=== PATIENT | male | born 1990 | race Caucasian/White ===

== ENCOUNTER 2018-10-11 19:33 | Emergency (ER) | payer BC ==
[2018-10-11] MEDS ORDERED: Lisinopril 10 MG Tab PO ONE (20:16)
--- NOTE | 2018-10-11 20:16 | EDM.PDOC ---
ED HPI GENERAL MEDICAL PROBLEM - General Chief Complaint: Respiratory Problem Stated Complaint: CONGESTION, TROUBLE BREATHING Time Seen by Provider: 10/11/18 20:11 Source of Information: Reports: Patient History Limitations: Reports: No Limitations - History of Present Illness INITIAL COMMENTS - FREE TEXT/NARRATIVE: HISTORY AND PHYSICAL: History of present illness: Patient is a 28-year-old male who presents to the emergency room with complaints of sore throat, cough and shortness of breath 3 weeks. He states he does cough so hard that his throat is painful and feels hoarse. He denies any fever, chills, chest pain, abdominal pain, nausea, vomiting, diarrhea or constipation. He has been eating and drinking appropriately. Denies any tobacco use. Review of systems: As per history of present illness and below otherwise all systems reviewed and negative. Past medical history: As per history of present illness and as reviewed below otherwise noncontributory. Surgical history: As per history of present illness and as reviewed below otherwise noncontributory. Social history: See social history for further information Family history: As per history of present illness and as reviewed below otherwise noncontributory. Physical exam: General: Well-developed and well-nourished 28 her old male. Alert and oriented. Nontoxic appearing and in no acute distress. HEENT: Atraumatic, normocephalic, pupils equal and reactive bilaterally, negative for conjunctival pallor or scleral icterus, mucous membranes moist, TMs normal bilaterally, throat erythema without exudate, neck supple, nontender , trachea midline. No drooling or trismus noted. No meningeal signs. No hot potato voice noted. Lungs: Diminished to auscultation, breath sounds equal bilaterally, chest nontender. Heart: S1S2, regular rate and rhythm without overt murmur Abdomen: Soft, nondistended, nontender. Negative for masses or hepatosplenomegaly. Negative for costovertebral tenderness. Pelvis: Stable nontender. Genitourinary: Deferred. Rectal: Deferred. Skin: Intact, warm, dry. No lesions or rashes noted. Extremities: Atraumatic, moves all extremities per self with difficulty or deficits, negative for cords or calf pain. Neurovascular unremarkable. Neuro: Awake, alert, oriented. Cranial nerves II through XII unremarkable. Cerebellum unremarkable. Motor and sensory unremarkable throughout. Exam nonfocal. Notes: Patient reports that he has a history of hypertension and had previously been on lisinopril 10 mg once daily. He reports that he stopped taking this medication several months ago as he thought his blood pressure was normal. He is aware that states reading is elevated and would like to be replaced on lisinopril. We discussed restarting this medication but the need to follow up with the primary care provider for reevaluation and further management of his prescriptions. We'll treat with Z-Nick and pro-air due to her longevity of symptoms. Strep is negative. Chest x-ray shows no acute findings. Supportive care measures were reviewed and discussed. Voices understanding and is agreeable to plan of care. Denies any further questions or concerns at this time. Diagnostics: Chest x-ray, strep Therapeutics: None Prescription: Lisinopril Pro-Air Inhaler Impression: Bronchitis Hypertension, unmanaged Plan: 1. Please use Tylenol and/or Ibuprofen as needed for pain and fever management. 2. Get plenty of Rest. Encourage fluids to prevent dehydration. 3. Please continue to monitor your blood pressure. Follow-up with primary care for reevaluation of this and further medication refills. 4. Please follow up with your primary care provider. Return to the ED as needed as discussed. Definitive disposition and diagnosis as appropriate pending reevaluation and review of above. Throat Pain Score (Numeric/FACES): 3 - Related Data Allergies Allergy/AdvReac Type Severity Reaction Status Date / Time codeine Allergy Rash Verified 10/11/18 20:11 Home Meds: Home Meds . [No Known Home Meds] 08/05/16 [History] Past Medical History HEENT History: Reports: Other (See Below) Other HEENT History: Laryngitis Cardiovascular History: Reports: Hypertension Other Cardiovascular History: Pt reports taking medication for HTN for one month and does not know name or dose Endocrine/Metabolic History: Reports: Obesity/BMI 30+ - Past Surgical History Other HEENT Surgeries/Procedures: Bilateral tubes in ear placed. Endocrine Surgical History: Reports: None Social & Family History - Family History Family Medical History: Noncontributory - Caffeine Use Caffeine Use: Reports: Energy Drinks ED ROS GENERAL - Review of Systems Review Of Systems: ROS reveals no pertinent complaints other than HPI. ED EXAM, GENERAL - Physical Exam Exam: See Below (See dictation) Course - Vital Signs Last Recorded V/S: Last Vital Signs Temp 98.3 F 10/11/18 20:08 Pulse 96 10/11/18 20:08 Resp BP 189/118 H 10/11/18 20:33 Pulse Ox 95 10/11/18 20:08 - Orders/Labs/Meds Orders: Active Orders 24 hr Category Date Time Status Chest 2V [CR] Stat Exams 10/11/18 20:12 Taken CULTURE STREP A CONFIRMATION [RM] Stat Lab 10/11/18 20:38 Results STREP SCRN A RAPID W CULT CONF [RM] Stat Lab 10/11/18 20:38 Results Meds: Medications Discontinued Medications Generic Name Dose Route Start Last Admin Trade Name Freq PRN Reason Stop Dose Admin Lisinopril 10 mg 10/11/18 20:16 10/11/18 20:33 Prinivil PO 10/11/18 20:17 10 mg ONETIME ONE Administration Departure - Departure Time of Disposition: 20:52 Disposition: Home, Self-Care 01 Clinical Impression: Bronchitis Hypertension Qualifiers: Hypertension type: unspecified Qualified Code(s): I10 - Essential (primary) hypertension - Discharge Information Referrals: PCP,None [Primary Care Provider] - Forms: ED Department Discharge Additional Instructions: The following information is given to patients seen in the emergency department who are being discharged to home. This information is to outline your options for follow-up care. We provide all patients seen in our emergency department with a follow-up referral. The need for follow-up, as well as the timing and circumstances, are variable depending upon the specifics of your emergency department visit. If you don't have a primary care physician on staff, we will provide you with a referral. We always advise you to contact your personal physician following an emergency department visit to inform them of the circumstance of the visit and for follow-up with them and/or the need for any referrals to a consulting specialist. The emergency department will also refer you to a specialist when appropriate. This referral assures that you have the opportunity for follow-up care with a specialist. All of these measure are taken in an effort to provide you with optimal care, which includes your follow-up. Under all circumstances we always encourage you to contact your private physician who remains a resource for coordinating your care. When calling for follow-up care, please make the office aware that this follow-up is from your recent emergency room visit. If for any reason you are refused follow-up, please contact the [facility] Emergency Department at and asked to speak to the emergency department charge nurse. [facility] [address] [place] [address] [address] 1. Please use Tylenol and/or Ibuprofen as needed for pain and fever management. 2. Get plenty of Rest. Encourage fluids to prevent dehydration. 3. Please continue to monitor your blood pressure. Follow-up with primary care for reevaluation of this and further medication refills. 4. Please follow up with your primary care provider. Return to the ED as needed as discussed. - My Orders Last 24 Hours: My Active Orders 10/11/18 20:12 Chest 2V [CR] Stat 10/11/18 20:38 CULTURE STREP A CONFIRMATION [RM] Stat STREP SCRN A RAPID W CULT CONF [RM] Stat - Assessment/Plan Last 24 Hours: My Active Orders 10/11/18 20:12 Chest 2V [CR] Stat 10/11/18 20:38 CULTURE STREP A CONFIRMATION [RM] Stat STREP SCRN A RAPID W CULT CONF [] Stat
--- NOTE | 2018-10-11 21:01 | CR ---
INDICATION: Chest pain, shortness of breath TECHNIQUE: Chest radiograph 2 views COMPARISON: None FINDINGS: Mediastinum: The mediastinum is normal in appearance. The heart silhouette is normal in size and morphology. Lung: Both lungs are unremarkable in appearance. No sign of pleural effusion seen. No pneumothorax is identified. Musculoskeletal: Unremarkable for age. IMPRESSION: 1. No acute cardiopulmonary disease is seen. Dictated by: Deepak Rand MD @ 10/11/2018 21:00:40 (Electronically Signed)
[2018-10-11 21:13] VITALS: BP 199/136
== END 2018-10-11 21:17 | disposition home or self-care (01) ==
LOC: MW.ED 19:33
DX: J40 Bronchitis, not specified as acute or chronic (principal); I10 Essential (primary) hypertension; Z88.5 Allergy status to narcotic agent
CPT/HCPCS: 71046; 87081; 87880; 99285; A9270; 99283

== ENCOUNTER 2019-08-02 14:11 | Emergency (ER) | payer BC ==
--- NOTE | 2019-08-02 14:43 | EDM.PDOC ---
ED HPI GENERAL MEDICAL PROBLEM - General Chief Complaint: Respiratory Problem Stated Complaint: DIFFICULTY BREATHING AND SPEAKING Time Seen by Provider: 08/02/19 14:19 Source of Information: Reports: Patient History Limitations: Reports: No Limitations - History of Present Illness INITIAL COMMENTS - FREE TEXT/NARRATIVE: HISTORY AND PHYSICAL: History of present illness: Patient is a 29-year-old male who presents to the emergency room with complaints of sore throat, cough and generally feeling unwell over the past week. He states typically he will get bronchitis yearly as the weather changes and is concerned he may have this now. Has not been using any [id number] products. Patient denies any fever, chills, headache, change in vision, syncope or near syncope. Denies any chest pain, back pain, shortness of breath or cough. Denies any abdominal pain, nausea, vomiting, diarrhea, constipation or dysuria. Has not noted any blood in urine or stool. Patient has been eating and drinking appropriately. Review of systems: As per history of present illness and below otherwise all systems reviewed and negative. Past medical history: As per history of present illness and as reviewed below otherwise noncontributory. Surgical history: As per history of present illness and as reviewed below otherwise noncontributory. Social history: See social history for further information Family history: As per history of present illness and as reviewed below otherwise noncontributory. Physical exam: General: Well-developed and well-nourished 29-year-old male. Alert and oriented. Nontoxic-appearing and in no acute distress. HEENT: Atraumatic, normocephalic, pupils equal and reactive bilaterally, negative for conjunctival pallor or scleral icterus, mucous membranes moist, TMs normal bilaterally, throat erythematous without exudate or soft tissue swelling, neck supple, nontender, trachea midline. No drooling or trismus noted. No meningeal signs. No hot potato voice noted. Lungs: Clear to auscultation, breath sounds equal bilaterally, chest nontender. Dry nonproductive cough noted. Heart: S1S2, regular rate and rhythm without overt murmur Abdomen: Soft, nondistended, nontender. Negative for masses or hepatosplenomegaly. Negative for costovertebral tenderness. Skin: Intact, warm, dry. No lesions or rashes noted. Extremities: Atraumatic, moves all extremities per self without difficulty or deficits, negative for cords or calf pain. Neurovascular unremarkable. Neuro: Awake, alert, oriented. Cranial nerves II through XII unremarkable. Cerebellum unremarkable. Motor and sensory unremarkable throughout. Exam nonfocal. Notes: Patient does have a history of hypertension and had previously been on medication for this although stopped the medication himself. He states he never had this re-evaluated. I will restart him on lisinopril with the intent of him following up with primary care for reevaluation and medication management. Diagnostics are unremarkable. Due to longevity of symptoms and history and good to treat with Z-Nick. Supportive care measures were reviewed and discussed. Voices understanding and is agreeable to plan of care. Denies any further questions or concerns at this time. Diagnostics: Influenza, strep, chest x-ray Therapeutics: None Prescription: Augmentin Lisinopril Impression: Pharyngitis Bronchitis Uncontrolled hypertension Plan: 1. Take your medication as directed. Good handwashing and contact precautions as we discussed. 2. Warm Salt water gargles (rinse and spit) 3-4 x daily. Please get a new tooth brush after completion of your medication 3. Tylenol and or ibuprofen as needed for pain management. Please continue to monitor your blood pressure it was very high today. You will need to follow-up with a primary care provider for medication management/refills. 4. Follow-up with your primary care provider in the next 1-2 days. Return to the ED as needed and as discussed. Definitive disposition and diagnosis as appropriate pending reevaluation and review of above. - Related Data Allergies Allergy/AdvReac Type Severity Reaction Status Date / Time codeine Allergy Rash Verified 08/02/19 14:17 Home Meds: Home Meds Amoxicillin/Clavulanate K [Augmentin 875-125 MG] 1 tab PO BID 10 Days #20 tablet 08/02/19 [Rx] lisinopriL [Lisinopril] 10 mg PO DAILY #30 tablet 08/02/19 [Rx] Past Medical History HEENT History: Reports: Other (See Below) Other HEENT History: Laryngitis Cardiovascular History: Reports: Hypertension Other Cardiovascular History: Pt reports taking medication for HTN for one month and does not know name or dose Endocrine/Metabolic History: Reports: Obesity/BMI 30+ - Past Surgical History Other HEENT Surgeries/Procedures: Bilateral tubes in ear placed. Endocrine Surgical History: Reports: None Social & Family History - Family History Family Medical History: Noncontributory - Tobacco Use Smoking Status *Q: Never Smoker - Caffeine Use Caffeine Use: Reports: Energy Drinks - Recreational Drug Use Recreational Drug Use: No ED ROS GENERAL - Review of Systems Review Of Systems: Comprehensive ROS is negative, except as noted in HPI. ED EXAM, GENERAL - Physical Exam Exam: See Below (See dictation) Course - Vital Signs Last Recorded V/S: Last Vital Signs Temp 97 F 08/02/19 14:15 Pulse 103 H 08/02/19 14:15 Resp 20 08/02/19 14:15 BP 183/118 H 08/02/19 14:15 Pulse Ox 96 08/02/19 14:15 - Orders/Labs/Meds Orders: Active Orders 24 hr Category Date Time Status Chest 2V [CR] Stat Exams 08/02/19 14:19 Ordered CULTURE STREP A CONFIRMATION [RM] Stat Lab 08/02/19 14:37 Results STREP SCRN A RAPID W CULT CONF [RM] Stat Lab 08/02/19 14:37 Results Meds: Medications Discontinued Medications Generic Name Dose Route Start Last Admin Trade Name Geovany PRN Reason Stop Dose Admin Methylprednisolone Sodium Succinate 125 mg 08/02/19 15:15 Solu-Medrol IM 08/02/19 15:16 ONETIME ONE Departure - Departure Time of Disposition: 15:17 Disposition: Home, Self-Care 01 Clinical Impression: Bronchitis, Uncontrolled hypertension Pharyngitis Qualifiers: Pharyngitis/tonsillitis etiology: unspecified etiology Qualified Code(s): J02.9 - Acute pharyngitis, unspecified - Discharge Information Prescriptions: Amoxicillin/Clavulanate K [Augmentin 875-125 MG] 1 tab PO BID 10 Days #20 tablet lisinopriL [Lisinopril] 10 mg PO DAILY #30 tablet Instructions: Upper Respiratory Infection, Adult Referrals: PCP,None [Primary Care Provider] - Forms: ED Department Discharge Additional Instructions: The following information is given to patients seen in the emergency department who are being discharged to home. This information is to outline your options for follow-up care. We provide all patients seen in our emergency department with a follow-up referral. The need for follow-up, as well as the timing and circumstances, are variable depending upon the specifics of your emergency department visit. If you don't have a primary care physician on staff, we will provide you with a referral. We always advise you to contact your personal physician following an emergency department visit to inform them of the circumstance of the visit and for follow-up with them and/or the need for any referrals to a consulting specialist. The emergency department will also refer you to a specialist when appropriate. This referral assures that you have the opportunity for follow-up care with a specialist. All of these measure are taken in an effort to provide you with optimal care, which includes your follow-up. Under all circumstances we always encourage you to contact your private physician who remains a resource for coordinating your care. When calling for follow-up care, please make the office aware that this follow-up is from your recent emergency room visit. If for any reason you are refused follow-up, please contact the [facility] Emergency Department at and asked to speak to the emergency department charge nurse. [facility] [address] [place] [id number] [facility] [address] [place] [id number] 1. Take your medication as directed. Good handwashing and contact precautions as we discussed. 2. Warm Salt water gargles (rinse and spit) 3-4 x daily. Please get a new tooth brush after completion of your medication 3. Tylenol and or ibuprofen as needed for pain management. Please continue to monitor your blood pressure it was very high today. You will need to follow-up with a primary care provider for medication management/refills. 4. Follow-up with your primary care provider in the next 1-2 days. Return to the ED as needed and as discussed. Sepsis Event Note - Evaluation Sepsis Screening Result: No Definite Risk - Focused Exam Vital Signs: Vital Signs Temp Pulse Resp BP Pulse Ox 08/02/19 14:15 97 F 103 H 20 183/118 H 96 Date Exam was Performed: 08/02/19 Time Exam was Performed: 15:17 - My Orders Last 24 Hours: My Active Orders 08/02/19 14:19 Chest 2V [CR] Stat 08/02/19 14:37 CULTURE STREP A CONFIRMATION [RM] Stat STREP SCRN A RAPID W CULT CONF [RM] Stat - Assessment/Plan Last 24 Hours: My Active Orders 08/02/19 14:19 Chest 2V [CR] Stat 08/02/19 14:37 CULTURE STREP A CONFIRMATION [RM] Stat STREP SCRN A RAPID W CULT CONF [RM] Stat
[2019-08-02] MEDS ORDERED: methylPREDNISolone Sodium Succinate 125 MG/2 ML SDV IM ONE (15:15)
--- NOTE | 2019-08-02 15:58 | CR ---
Chest: PA and lateral views the chest were obtained. Comparison: Prior chest x-ray 10/11/18. Heart size and mediastinum are normal. Lungs are clear. Bony structures are unremarkable. Impression: 1. Nothing acute is seen on 2 view chest x-ray. Diagnostic code #1 This report was dictated in [place] Standard Time
[2019-08-02 17:13] VITALS: BP 138/96; PULSE 98
== END 2019-08-02 16:32 | disposition home or self-care (01) ==
LOC: MW.ED 14:11
DX: J02.9 Acute pharyngitis, unspecified (principal); J40 Bronchitis, not specified as acute or chronic; I10 Essential (primary) hypertension; E66.9 Obesity, unspecified; Z68.37 Body mass index [BMI] 37.0-37.9, adult; Z88.5 Allergy status to narcotic agent; Z79.899 Other long term (current) drug therapy
CPT/HCPCS: 71046; 87081; 87804; 87880; 96372; 99283; J2930

== ENCOUNTER 2019-08-21 13:00 | Emergency (ER) | payer BC ==
--- NOTE | 2019-08-21 13:13 | EDM.PDOC ---
ED HPI GENERAL MEDICAL PROBLEM - General Chief Complaint: Respiratory Problem Stated Complaint: RESPITORY INFECTOIN Time Seen by Provider: 08/21/19 13:13 Source of Information: Reports: Patient History Limitations: Reports: No Limitations - History of Present Illness INITIAL COMMENTS - FREE TEXT/NARRATIVE: Patient is a 29-year-old male is complaining having nonproductive cough for the past month. Patient was seen by PCP a few weeks ago and started on Augmentin without any relief of his symptoms. He is not a cigarette smoker. He has had bronchitis several times in the past. He denies any previous history of pneumonia. Patient denies any fever or shaking chills and is nauseous at times but denies vomiting or diarrhea. He denies any chest or abdominal pain. He is not feeling short of breath. Having paroxysms of coughing. He denies any swelling to his calves or ankles. Patient has had similar symptoms every year for the past 20 years. He states Zithromax does not help with his symptoms. Duration: Week(s): (four) Location: Reports: Chest Quality: Reports: Ache Severity: Mild Improves with: Reports: None Worsens with: Reports: Breathing Associated Symptoms: Reports: Cough, cough w sputum, Fever/Chills, Malaise. Denies: Headaches, Shortness of Breath - Related Data Allergies Allergy/AdvReac Type Severity Reaction Status Date / Time codeine Allergy Rash Verified 08/21/19 13:12 Home Meds: Home Meds lisinopriL [Lisinopril] 10 mg PO DAILY #30 tablet 08/02/19 [Rx] Past Medical History HEENT History: Reports: Other (See Below) Other HEENT History: Laryngitis Cardiovascular History: Reports: Hypertension Other Cardiovascular History: Pt reports taking medication for HTN for one month and does not know name or dose Endocrine/Metabolic History: Reports: Obesity/BMI 30+ - Past Surgical History Other HEENT Surgeries/Procedures: Bilateral tubes in ear placed. Endocrine Surgical History: Reports: None Social & Family History - Family History Family Medical History: Noncontributory - Caffeine Use Caffeine Use: Reports: Energy Drinks ED ROS GENERAL - Review of Systems Review Of Systems: Comprehensive ROS is negative, except as noted in HPI. ED EXAM, GENERAL - Physical Exam Exam: See Below Free Text/Narrative:: Exam: See Below Exam Limited By: No Limitations Head: Atraumatic Neck: Normal Inspection. No: Carotid Bruit, Lymphadenopathy (R) Respiratory/Chest: No Respiratory Distress, Lungs Clear, Normal Breath Sounds, No Accessory Muscle Use. No: Chest Non-Tender. No wheezing. Cardiovascular: Normal Peripheral Pulses, Regular Rate, Rhythm, No Edema, No JVD GI/Abdominal: Normal Bowel Sounds, nontender Back Exam: Normal Inspection. No: CVA Tenderness (R) Extremities: Normal Inspection. No: No Pedal Edema Neurological: Alert, Oriented, Normal Cognition Psychiatric: Normal Affect Skin Exam: Warm Lymphatic: No Adenopathy Course - Vital Signs Text/Narrative:: Patient feels no better after DuoNeb treatment. His influenza screen is negative. I will discharge him with a prescription for Bactrim, Robitussin-AC and prednisone. He knows to return to emergency department symptoms are worse and will follow-up with his PCP if not improving. Last Recorded V/S: Last Vital Signs Temp 36.2 C 08/21/19 13:13 Pulse 97 08/21/19 13:13 Resp 18 08/21/19 13:13 BP 162/101 H 08/21/19 13:13 Pulse Ox 95 08/21/19 13:13 - Orders/Labs/Meds Orders: Active Orders 24 hr Category Date Time Status RT Aerosol Therapy [RC] ASDIRECTED Care 08/21/19 13:23 Active Meds: Medications Discontinued Medications Generic Name Dose Route Start Last Admin Trade Name Geovany PRN Reason Stop Dose Admin Albuterol/Ipratropium 3 ml 08/21/19 13:23 08/21/19 13:34 Duoneb 3.0-0.5 Mg/3 Ml NEB 08/21/19 13:24 3 ml ONETIME ONE Administration Prednisone 40 mg 08/21/19 13:23 08/21/19 13:34 Prednisone PO 08/21/19 13:24 40 mg ONETIME ONE Administration Departure - Departure Time of Disposition: 14:26 Disposition: Home, Self-Care 01 Condition: Good Clinical Impression: Acute bronchitis - Discharge Information Instructions: Acute Bronchitis, Adult Referrals: PCP,None [Primary Care Provider] - Forms: ED Department Discharge Additional Instructions: Meds as prescribed. Return to ER if feeling worse. See PCP if not improving. Care Plan Goals: The following information is given to patients seen in the emergency department who are being discharged to home. This information is to outline your options for follow-up care. We provide all patients seen in our emergency department with a follow-up referral. The need for follow-up, as well as the timing and circumstances, are variable depending upon the specifics of your emergency department visit. If you don't have a primary care physician on staff, we will provide you with a referral. We always advise you to contact your personal physician following an emergency department visit to inform them of the circumstance of the visit and for follow-up with them and/or the need for any referrals to a consulting specialist. The emergency department will also refer you to a specialist when appropriate. This referral assures that you have the opportunity for follow-up care with a specialist. All of these measure are taken in an effort to provide you with optimal care, which includes your follow-up. Under all circumstances we always encourage you to contact your private physician who remains a resource for coordinating your care. When calling for follow-up care, please make the office aware that this follow-up is from your recent emergency room visit. If for any reason you are refused follow-up, please contact the [facility] Emergency Department at and asked to speak to the emergency department charge nurse. Sepsis Event Note - Focused Exam Vital Signs: Vital Signs Temp Pulse Resp BP Pulse Ox 08/21/19 13:13 36.2 C 97 18 162/101 H 95 Date Exam was Performed: 08/21/19 Time Exam was Performed: 14:24 - My Orders Last 24 Hours: My Active Orders 08/21/19 13:23 RT Aerosol Therapy [RC] ASDIRECTED - Assessment/Plan Last 24 Hours: My Active Orders 08/21/19 13:23 RT Aerosol Therapy [RC] ASDIRECTED
[2019-08-21] MEDS ORDERED: predniSONE 20 MG Tab PO ONE (13:23)
[2019-08-21] MEDS ORDERED: Albuterol/Ipratropium 3.0-0.5 MG/3 ML Neb Soln NEB ONE (13:23)
[2019-08-21 14:53] VITALS: BP 137/79; PULSE 93
== END 2019-08-21 14:53 | disposition home or self-care (01) ==
LOC: MW.ED 13:00
DX: J20.9 Acute bronchitis, unspecified (principal); I10 Essential (primary) hypertension; E66.9 Obesity, unspecified; Z79.899 Other long term (current) drug therapy; Z88.5 Allergy status to narcotic agent
CPT/HCPCS: 87804; 94640; 99283; A9270; J7620-GY